=== PATIENT | female | born 1990 | race African-American/Black ===

== ENCOUNTER 2018-09-12 09:25 | Emergency (ER) | payer OTHER ==
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
[2018-09-12 09:36] VITALS: BP 120/75; PULSE 100; TEMP 97.9; BMI 27.4
[2018-09-12] MEDS ORDERED: IBUPROFEN 600 MG TABLET (FP) PO ONE ×2 (09:42→09:46)
== END 2018-09-12 09:54 | disposition home or self-care (01) ==
LOC: FER 09:25
DX: S29.012A Strain of muscle and tendon of back wall of thorax, initial encounter (principal); V43.52XA Car driver injured in collision with other type car in traffic accident, initial encounter; Y93.89 Activity, other specified; Y92.410 Unspecified street and highway as the place of occurrence of the external cause
CPT/HCPCS: 99281-25

== ENCOUNTER 2023-11-08 14:52 | Emergency (ER) | payer OTHER ==
[2023-11-08 15:08] VITALS: BP 117/79; PULSE 82; RESP 16; TEMP 98.2; BMI 30.9
[2023-11-08] MEDS ORDERED: METOCLOPRAMIDE HCL INJECTION 10 MG/2 ML VIAL IVPB ONE (15:09)
[2023-11-08] MEDS ORDERED: SODIUM CHLORIDE 0.9% 500 ML INFUS.BAG IV ONE (15:09)
[2023-11-08] MEDS ORDERED: ACETAMINOPHEN 1000 MG/100 ML BAG IVPB ONE (15:09)
[2023-11-08] MEDS ORDERED: ACETAMINOPHEN INJECTION 100 ML IVPB ONE (15:23)
[2023-11-08] MEDS ORDERED: METOCLOPRAMIDE HCL INJECTION 10 MG/2 ML VIAL ONE (15:23)
[2023-11-08] MEDS ORDERED: DEXAMETHASONE SOD PHOSPHATE 10 MG/1 ML VIAL IVPUSH ONE (16:44)
[2023-11-08] MEDS ORDERED: DEXAMETHASONE SOD PHOSPHATE 10 MG/1 ML VIAL ONE (17:23)
== END 2023-11-08 17:37 | disposition home or self-care (01) ==
LOC: FER 14:52
PROC: 3E033NZ Introduction of Analgesics, Hypnotics, Sedatives into Peripheral Vein, Percutaneous Approach (ICD-10-PCS; principal; 2023-11-08)
PROC: 3E033GC Introduction of Other Therapeutic Substance into Peripheral Vein, Percutaneous Approach (ICD-10-PCS; 2023-11-08)
PROC: 3E033GC Introduction of Other Therapeutic Substance into Peripheral Vein, Percutaneous Approach (ICD-10-PCS; 2023-11-08)
DX: R51.9 Headache, unspecified (principal)
CPT/HCPCS: 81025; 99284-25; J1100